=== PATIENT | female | born 1985 | race Two or more races ===

== ENCOUNTER 2016-08-14 13:41 | Emergency (ER) | payer MEDICAID ==
[~2016-08-14] VITALS: Ht 162.6 cm; Wt 83.4 kg
[2016-08-14] MEDS ORDERED: KETOROLAC 30 MG/1 ML ONE (14:23)
[2016-08-14] MEDS ORDERED: KETOROLAC 30 MG/1 ML IM ONE (14:30)
[2016-08-14] MEDS ORDERED: PLEASE ENTER ALLERGIES MC SCH ×2 (14:30)
[2016-08-14 14:44] LABS: BLOOD UREA NITROGEN 14 mg/dL (7-18)
[2016-08-14 15:49] VITALS: BP 104/58
[2016-08-14] MEDS ORDERED: CEFTRIAXONE 1,000 MG IM ONE ×2 (16:00)
[2016-08-14] MEDS ORDERED: CEFTRIAXONE 1,000 MG ONE (16:04)
[2016-08-14] MEDS ORDERED: LIDOCAINE 1%, 20ML ONE (16:04)
== END 2016-08-14 16:21 | disposition home or self-care (01) ==
LOC: ED 16:11
DX: N10 Acute pyelonephritis (principal); N39.0 Urinary tract infection, site not specified
CPT/HCPCS: 36415; 76770; 76830; 80048; 81001; 82040; 84703; 85025; 87077; 87086; 87186; 96372; 99285; J0696; J1885

== ENCOUNTER 2017-08-12 22:41 | Emergency (ER) | payer MEDICAID, MEDICARE ==
[~2017-08-12] VITALS: Ht 162.6 cm; Wt 92.7 kg
[2017-08-13 00:28] LABS: BASOPHILS # (AUTO) 0.04 x10^3/uL (0-0.1); BASOPHILS % (AUTO) 1 % (0-1); EOSINOPHILS # (AUTO) 0.31 x10^3/uL (0-0.4); EOSINOPHILS % (AUTO) 4 % (1-7); LYMPHOCYTES # (AUTO) 1.09 x10^3/uL (1-3.4); LYMPHOCYTES % (AUTO) 13 % (22-44); MD NO; MEAN CORPUSCULAR HGB CONC 33.9 g/dL (32.4-35.8); MEAN CORPUSCULAR VOLUME 88.6 fL (80-100); MEAN PLATELET VOLUME 8.3 fL (7.4-10.4); MONOCYTES # (AUTO) 0.68 x10^3/uL (0.2-0.8); MONOCYTES % (AUTO) 8 % (2-9); NEUTROPHILS # (AUTO) 5.99 x10^3/uL (1.8-6.8); NEUTROPHILS % (AUTO) 74 % (42-75); PLATELET COUNT 238 x10^3/uL (130-400); RED BLOOD COUNT 4.73 x10^6/uL (3.82-5.3); RED CELL DISTRIBUTION WIDTH 13.4 % (9.6-15.2)
[2017-08-13 00:39] LABS: ALANINE AMINOTRANSFERASE 19 U/L (12-78); ALBUMIN 3.3 g/dL (3.4-5.0); ANION GAP 7 mmol/L (5-15); CALCIUM 8.8 mg/dL (8.5-10.1); CHLORIDE 106 mmol/L (98-107); CREATININE 0.81 mg/dL (0.55-1.02)
[2017-08-13 00:41] LABS: MICROSCOPIC AUTO
[2017-08-13 00:44] LABS: CULTURE INDICATED? YES
[2017-08-13 00:44] LABS: ALKALINE PHOSPHATASE 78 U/L (45-117); BILIRUBIN,TOTAL 0.3 mg/dL (0.2-1.0); TOTAL PROTEIN 7.5 g/dL (6.4-8.2); TROPONIN I < 0.015 ng/mL (0.000-0.045)
[2017-08-13] MEDS ORDERED: MAALOX/HYOSCYAMINE/LIDOCAINE 45 ML BTL ONE (01:15)
[2017-08-13 01:22] VITALS: BP 101/55
[2017-08-13] MEDS ORDERED: MAALOX/HYOSCYAMINE/LIDOCAINE 45 ML BTL PO ONE (01:30)
[2017-08-13] MEDS ORDERED: FAMOTIDINE 20 MG TABLET ONE (01:50)
[2017-08-13] MEDS ORDERED: FAMOTIDINE 20 MG TABLET PO ONE (02:00)
== END 2017-08-13 04:03 | disposition home or self-care (01) ==
LOC: ED 23:59
DX: R07.89 Other chest pain (principal); R10.13 Epigastric pain
CPT/HCPCS: 36415; 71045; 76700; 80053; 81001; 83690; 84484; 84703; 85025; 87086; 93005; 99285